=== PATIENT | female | born 1985 | race Caucasian/White ===

== ENCOUNTER → 2017-01-14 | Outpatient (CLI) | payer OTHER ==
[2017-01-14 15:52] LABS: BASO % 1 % (0-3); EOS # 0.1 x10^3/uL (0.0-0.7); EOS % 1 % (0-3); HEMATOCRIT 41.9 % (36.0-47.0); HEMOGLOBIN 13.8 g/dL (12.0-15.5); LYMPH # 1.9 x10^3/uL (1.0-4.8); LYMPH % 36 % (24-48); MEAN CORPUSCULAR HEMOGLOBIN 30 pg (25-35); MEAN CORPUSCULAR HGB CONC 33 g/dL (31-37); MEAN CORPUSCULAR VOLUME 92 fL (79-100); MONO # 0.4 x10^3/uL (0.0-1.1); MONO % 7 % (0-9); NEUT % 56 % (31-73); PLATELET COUNT 237 x10^3/uL (140-400); RED BLOOD COUNT 4.59 x10^6/uL (3.50-5.40); RED CELL DISTRIBUTION WIDTH 12.7 % (11.5-14.5); WHITE BLOOD COUNT 5.4 x10^3/uL (4.0-11.0)
[2017-01-14 16:02] LABS: ALBUMIN 3.8 g/dL (3.4-5.0); ALBUMIN/GLOBULIN RATIO 1.1 (1.0-1.7); CALCIUM 8.7 mg/dL (8.5-10.1); CREATININE 0.8 mg/dL (0.6-1.0); GFR 82.6; MAGNESIUM 2.1 mg/dL (1.8-2.4); POTASSIUM 4.2 mmol/L (3.5-5.1); TOTAL BILIRUBIN 0.4 mg/dL (0.2-1.0); TOTAL PROTEIN 7.2 g/dL (6.4-8.2)
== END | disposition home or self-care (01) ==
LOC: LAB 14:54
PROVIDERS: ATTEND Nurse Practitioner Family
DX: R19.7 Diarrhea, unspecified (principal); R21 Rash and other nonspecific skin eruption; R10.9 Unspecified abdominal pain; R94.8 Abnormal results of function studies of other organs and systems; K90.49 Malabsorption due to intolerance, not elsewhere classified
CPT/HCPCS: 80053; 83735; 85027

== ENCOUNTER → 2017-02-25 | Outpatient (CLI) | payer OTHER ==
--- NOTE | 2017-02-25 12:12 | RAD ---
Examination: Whole-body bone scan History: History of chronic bilateral leg pain Comparison: None available Technique: 25.0 mCi of technetium 99m MDP was injected IV and anterior and posterior whole body projection images were performed Findings: There is no evidence of abnormal focal radiotracer uptake identified throughout the visualized skeleton. Impression: No evidence of abnormal focal radiotracer uptake identified throughout the visualized skeleton.
== END | disposition home or self-care (01) ==
LOC: NM 08:21
PROVIDERS: ATTEND Family Medicine
DX: M89.8X0 Other specified disorders of bone, multiple sites (principal); R52 Pain, unspecified
CPT/HCPCS: 78306; 96374; A9503

== ENCOUNTER → 2017-03-06 | Outpatient (CLI) | payer OTHER ==
--- NOTE | 2017-03-06 12:08 | RAD ---
Indication pelvic pain. Irregular menstrual bleeding. Initially transabdominal scans were obtained. Initial transabdominal scans were supplemented with transvaginal scans. HCG status is uncertain but for the purposes of this dictation will be assumed to be negative. The uterus measures approximately 6.6 x 4.2 x 3.3 cm. Incidental note is made that the uterus is retroverted. The endometrium appears normal. Both ovaries are identified and appear unremarkable. Follicular cysts are noted. There is a trace amount of free fluid in the pelvis which is likely physiologic. IMPRESSION: Normal study
== END | disposition home or self-care (01) ==
LOC: US 10:50
PROVIDERS: ATTEND Obstetrics & Gynecology
DX: N92.6 Irregular menstruation, unspecified (principal); N85.4 Malposition of uterus
CPT/HCPCS: 76830; 76856; 80061

== ENCOUNTER → 2017-03-17 | Outpatient (CLI) | payer OTHER ==
--- NOTE | 2017-03-17 15:37 | RAD ---
Renal ultrasound, 03/17/2017: History: Bilateral back pain The right kidney measures 10.1 cm in length, while the left kidney measures 10.4 cm. Initial limited scans with a full bladder demonstrate slight prominence of the renal collecting systems. The bladder demonstrates no intrinsic abnormality. Bilateral ureteral jets are present. There is only a tiny amount of post voiding residual urine in the bladder. Subsequent images of the kidneys obtained after voiding show no evidence of hydronephrosis. There is no evidence of a renal mass. The renal parenchymal echogenicity is within normal limits. No abnormal perinephric process is seen. IMPRESSION: 1. Slight prominence of the renal pelves in the presence of a full bladder. 2. The renal ultrasound is otherwise unremarkable.
[2017-03-17 21:10] LABS: ESTRADIOL LEVEL 56.5 pg/mL (.); FSH 8.5 mIU/mL (.); LUTEINIZING HORMONE 26.6 mIU/mL (.); PROGESTERONE 0.1 ng/mL (.)
== END | disposition home or self-care (01) ==
LOC: LAB 09:28
PROVIDERS: ATTEND Obstetrics & Gynecology
DX: M54.5 Low back pain (principal)
CPT/HCPCS: 36415; 76770; 82670; 83001; 83002; 84144